=== PATIENT | male | born 1970 | race Caucasian/White ===

== ENCOUNTER 2018-10-22 17:10 | Outpatient (CLI) | payer OTHER ==
--- NOTE | 2018-10-23 17:22 | MRI Report ---
Reason: HEADACHE,UNSPECIFIED NYSTAGMUS Procedure Date: 10/22/2018 Accession Number: [id number] / [id number] Procedure: MRI - Brain W/O CPT Code: FULL RESULT: EXAM: MRI BRAIN WITHOUT CONTRAST EXAM DATE: 10/22/2018 06:07 PM. CLINICAL HISTORY: Headache, unspecified nystagmus. COMPARISON: None. TECHNIQUE: Multiplanar, multisequence T1-weighted and fluid-sensitive MR sequences of the brain were performed. Sequences optimized for routine evaluation. Other: None. IV Contrast: None. FINDINGS: The diffusion-weighted images are normal. There is no evidence of acute or subacute cerebral infarction. 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 The basilar artery measures up to 7.5 mm distally. This produces compression and uplifting of the left side of the hypothalamus (4, 801). This is somewhat unusual in a patient of this young age. Recommend correlation for any history of chronic hypertension. The T2 axial FLAIR images are normal. Cerebral volume and ventricular size are normal. The craniocervical junction is normal. The pituitary and sella are normal. The bilateral parotid spaces exhibit normal signal intensity. There is contact and posterior displacement of the nerve exit zone of the right 7th and 8th cranial nerves by the tortuous basilar artery (32, 901). Recommend correlation for any right 7th or 8th cranial nerve findings. There also appears to be extension to the nerve exit zone. There is also contact and posterior displacement of the right glossopharyngeal nerve (14, 901). There also appears to likely to be contact of the vagus nerve. Recommend correlation with clinical symptoms. There is a normal appearance of the course of the left 7th and 8th cranial nerves. There is a normal appearance of the course of the left glossopharyngeal nerve. There is a normal appearance of the course of the bilateral trigeminal nerves. There are normal bony caps demonstrated over the bilateral superior semicircular canals. There is no evidence of dehiscence. The T2* sequence is normal. There is no evidence of subacute or chronic hemorrhage. IMPRESSION: 1. There is no evidence of acute or subacute cerebral infarction. 2. 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 The basilar artery measures up to 7.5 mm distally. This produces compression and uplifting of the left side of the hypothalamus. However there is no T2 hyperintensity to suggest underlying edema. There is also contact and posterior displacement of the right 7th and 8th cranial nerves, right 9th and 10th cranial nerves. Recommend correlation with clinical symptoms. This is somewhat unusual for patient of this age. This can be secondary to chronic hypertension. Recommend correlation. Otherwise, it may represent an unusual anatomical variant. 3. There is no evidence of brain mass.
== END 2018-10-22 17:11 | disposition home or self-care (01) ==
LOC: DI 17:10
PROVIDERS: ATTEND Family Medicine
DX: I77.89 Other specified disorders of arteries and arterioles (principal); R51 Headache; H55.00 Unspecified nystagmus
CPT/HCPCS: 70551

== ENCOUNTER 2019-08-09 21:20 | Emergency (ER) | payer OTHER ==
[2019-08-09 21:30] VITALS: BP 146/87
--- NOTE | 2019-08-09 21:49 | ED Physician Documentation ---
History of Present Illness - Stated complaint Stated Complaint: POSS OVERDOSE,FEVER - Chief complaint Chief Complaint: General - History obtained from History obtained from: Patient (the patient is a 49 y/o m who p/w a cc of possible tylenol toxicity. the patient has been treating himself with theraflul and nyquil over the last 48 hours for a fever and cough, his called poison control and they told him to come to the er. the patient denies any complaints other than flu like symptoms of fevers and cough, he vomited once today. he denies any lethargy, jaundice like symptoms, headaches, diarrhea, dark urine, chapo colored stools, yellowing of the skin. denies any seizures. reports he is up to date on all of his immunizations, does take metformin for non insulin dependent diabetes.) Review of Systems Constitutional: reports: Fever, Chills, Myalgias Eyes: reports: Reviewed and negative Ears: reports: Reviewed and negative Nose: reports: Reviewed and negative Throat: reports: Reviewed and negative Cardiac: reports: Reviewed and negative Respiratory: reports: Reviewed and negative GI: reports: Reviewed and negative : reports: Reviewed and negative Skin: reports: Reviewed and negative Musculoskeletal: reports: Reviewed and negative Neurologic: reports: Reviewed and negative Psychiatric: reports: Reviewed and negative Endocrine: reports: Reviewed and negative Immunocompromised: reports: Reviewed and negative PD PAST MEDICAL HISTORY - Present Medications Home Medications: Ambulatory Orders Medication Instructions Recorded Confirmed Benzonatate [Tessalon Perle] 100 mg PO BID PRN #7 capsule 08/09/19 - Allergies Allergies/Adverse Reactions: Allergies Allergy/AdvReac Type Severity Reaction Status Date / Time No Known Drug Allergies Allergy Verified 08/09/19 21:25 PD ED PE NORMAL - Vitals Vital signs reviewed: Yes - General General: Alert and oriented X 3, No acute distress, Well developed/nourished - HEENT HEENT: Atraumatic, PERRL, EOMI, Ears normal, Moist mucous membranes, Dentition benign, Other (no scleral icterus) - Neck Neck: Supple, no meningeal sign, No JVD, No bruit - Cardiac Cardiac: RRR, No murmur, Strong equal pulses - Respiratory Respiratory: No respiratory distress, Clear bilaterally, Other - Abdomen Abdomen: Normal bowel sounds, Soft, Non tender, Non distended, No organomegaly - Male Male : Deferred - Rectal Rectal: Deferred - Back Back: No CVA TTP, No spinal TTP - Derm Derm: Normal color, Warm and dry, No rash - Extremities Extremities: No deformity, No tenderness to palpate, Normal ROM s pain, No edema, No calf tenderness / cord - Neuro Neuro: Alert and oriented X 3, credit analysis manager 2-12 intact, No motor deficit, No sensory deficit, Normal speech - Psych Psych: Normal mood, Normal affect Results - Vitals Vitals: Vital Signs - 24 hr 08/09/19 21:25 Temperature 37.8 C H Heart Rate 92 Respiratory 14 Rate Blood Pressure 146/87 H O2 Saturation 94 Oxygen O2 Source Room air - EKG (time done) 22:10 Rate: Other (no stemi) - Labs Labs: Laboratory Tests 08/09/19 08/09/19 08/09/19 22:25 22:25 22:25 WBC 9.0 RBC 4.73 Hgb 15.5 Hct 42.9 MCV 90.7 MCH 32.8 H MCHC 36.1 H RDW 12.8 Plt Count 184 MPV 9.8 Neut # (Auto) 6.7 H Lymph # (Auto) 1.1 L [place] # (Auto) 1.0 Eos # (Auto) 0.2 Baso # (Auto) 0.1 Absolute Nucleated RBC 0.00 Nucleated RBC % 0.0 PT INR APTT Sodium 134 L Potassium 2.6 L Chloride 98 L Carbon Dioxide 25 Anion Gap 11.0 BUN 18 Creatinine 0.9 Estimated GFR (MDRD) 89 Glucose 170 H Lactic Acid Calcium 8.6 Total Bilirubin 1.0 Direct Bilirubin 0.1 AST 25 ALT 33 Alkaline Phosphatase 56 Ammonia 24.3 Total Creatine Kinase 146 Troponin I High Sens Total Protein 7.0 Albumin 4.1 Globulin 2.9 Lipase 25 Salicylates < 6.0 Urine Opiates Screen Ur Oxycodone Screen Urine Methadone Screen Ur Propoxyphene Screen Acetaminophen < 10 L Ur Barbiturates Screen Ur Tricyclics Screen Ur Phencyclidine Scrn Ur Amphetamine Screen U Methamphetamines Scrn U Benzodiazepines Scrn Urine Cocaine Screen U Cannabinoids Screen Ethyl Alcohol < 5.0 08/09/19 08/09/19 08/09/19 22:25 22:25 22:25 WBC RBC Hgb Hct MCV MCH MCHC RDW Plt Count MPV Neut # (Auto) Lymph # (Auto) [place] # (Auto) Eos # (Auto) Baso # (Auto) Absolute Nucleated RBC Nucleated RBC % PT 12.9 H INR 1.1 APTT 29.4 Sodium Potassium Chloride Carbon Dioxide Anion Gap BUN Creatinine Estimated GFR (MDRD) Glucose Lactic Acid 1.2 Calcium Total Bilirubin Direct Bilirubin AST ALT Alkaline Phosphatase Ammonia Total Creatine Kinase Troponin I High Sens 9.3 Total Protein Albumin Globulin Lipase Salicylates Urine Opiates Screen Ur Oxycodone Screen Urine Methadone Screen Ur Propoxyphene Screen Acetaminophen Ur Barbiturates Screen Ur Tricyclics Screen Ur Phencyclidine Scrn Ur Amphetamine Screen U Methamphetamines Scrn U Benzodiazepines Scrn Urine Cocaine Screen U Cannabinoids Screen Ethyl Alcohol 08/09/19 22:25 WBC RBC Hgb Hct MCV MCH MCHC RDW Plt Count MPV Neut # (Auto) Lymph # (Auto) [place] # (Auto) Eos # (Auto) Baso # (Auto) Absolute Nucleated RBC Nucleated RBC % PT INR APTT Sodium Potassium Chloride Carbon Dioxide Anion Gap BUN Creatinine Estimated GFR (MDRD) Glucose Lactic Acid Calcium Total Bilirubin Direct Bilirubin AST ALT Alkaline Phosphatase Ammonia Total Creatine Kinase Troponin I High Sens Total Protein Albumin Globulin Lipase Salicylates Urine Opiates Screen NEGATIVE Ur Oxycodone Screen NEGATIVE Urine Methadone Screen NEGATIVE Ur Propoxyphene Screen NEGATIVE Acetaminophen Ur Barbiturates Screen NEGATIVE Ur Tricyclics Screen NEGATIVE Ur Phencyclidine Scrn NEGATIVE Ur Amphetamine Screen NEGATIVE U Methamphetamines Scrn NEGATIVE U Benzodiazepines Scrn POSITIVE H Urine Cocaine Screen NEGATIVE U Cannabinoids Screen NEGATIVE Ethyl Alcohol PD MEDICAL DECISION MAKING - ED course Complexity details: reviewed results (23:14), re-evaluated patient (23:14), considered differential (patient taking nyquil and theraflu for last 48 hours, unknown of total amount, denies si/hi, denies jaundice like symptoms. will check acetaminophen level and coag, coingestants, basic labs and reval. patient asymptomatic currently), d/w patient (23:14), d/w family (23:14) Departure - Departure Disposition: 01 Home, Self Care Clinical Impression: Viral syndrome Condition: Stable Instructions: ED Viral Syndrome Follow-Up: TIKI LOTT MD [Primary Care Provider] - 08/11/19 Prescriptions: Benzonatate [Tessalon Perle] 100 mg PO BID PRN #7 capsule PRN Reason: Cough
[2019-08-09 22:32] LABS: BASOPHILS # (AUTO) 0.1 10^3/uL (0.0-0.1); BASOPHILS % (AUTO) 0.7 %; EOSINOPHILS # (AUTO) 0.2 10^3/uL (0.0-0.7); EOSINOPHILS % (AUTO) 2.3 %; HGB - HEMOGLOBIN 15.5 g/dL (14.0-18.0); LYMPHOCYTES # (AUTO) 1.1 10^3/uL (1.5-3.5); LYMPHOCYTES % (AUTO) 11.7 %; MEAN CORPUSCULAR HEMOGLOBIN 32.8 pg (27.0-31.0); MEAN CORPUSCULAR HGB CONC 36.1 g/dL (32.0-36.0); MEAN CORPUSCULAR VOLUME 90.7 fL (80.0-94.0); MEAN PLATELET VOLUME 9.8 fL (7.4-11.4); MONOCYTES % (AUTO) 10.9 %; NEUTROPHILS # (AUTO) 6.7 10^3/uL (1.5-6.6); NEUTROPHILS % (AUTO) 74.1 %; PLT - PLATELET COUNT 184 10^3/uL (130-450); RED BLOOD COUNT 4.73 10^6/uL (4.70-6.10); RED CELL DISTRIBUTION WIDTH 12.8 % (12.0-15.0)
--- NOTE | 2019-08-09 22:34 | XRAY Report ---
Reason: cough Procedure Date: 08/09/2019 Accession Number: [id number] / [id number] Procedure: XR - Chest 2 View X-Ray CPT Code: 92826 Final Report FULL RESULT: EXAM: CHEST RADIOGRAPHY EXAM DATE: 08/09/2019 10:19 PM. CLINICAL HISTORY: Cough. Cough for 3 days. COMPARISON: None. TECHNIQUE: 2 views. FINDINGS: Lungs/Pleura: No focal opacities evident. No pleural effusion. No pneumothorax. Normal volumes. Mediastinum: Heart and mediastinal contours are unremarkable. Other: Old healed right clavicular fracture. IMPRESSION: No acute cardiopulmonary abnormality demonstrated. RADIA
[2019-08-09 22:38] LABS: INR 1.1 (0.8-1.2); PT - PROTHROMBIN TIME 12.9 secs (9.9-12.6)
[2019-08-09 22:40] LABS: MUDS CUTOFF CONCENTRATIONS CUTOFF CONC BELOW:
[2019-08-09 22:45] LABS: PARTIAL THROMBOPLASTIN TIME 29.4 secs (24.9-33.3)
[2019-08-09 22:48] LABS: ACETAMINOPHEN < 10 ug/mL (10-30); ALBUMIN 4.1 g/dL (3.2-5.5); ALKALINE PHOSPHATASE 56 IU/L (42-121); ALT ALANINE AMINOTRANSFERASE 33 IU/L (10-60); AST ASPARTATE AMINOTRANSFERASE 25 IU/L (10-42); BILIRUBIN,DIRECT 0.1 mg/dL (0.1-0.5); BUN - BLOOD UREA NITROGEN 18 mg/dL (6-20); CALCIUM 8.6 mg/dL (8.5-10.3); CARBON DIOXIDE - CO2 25 mmol/L (21-32); CHLORIDE 98 mmol/L (101-111); CK- CREATINE KINASE 146 IU/L (22-269); CREATININE 0.9 mg/dL (0.6-1.2); GFR - MDRD 89 (>89); GLUCOSE 170 mg/dL (70-100); LIPASE 25 U/L (22-51); SALICYLATE < 6.0 mg/dL; SODIUM 134 mmol/L (135-145)
[2019-08-09 22:52] LABS: AMPHETAMINE SCREEN,URINE NEGATIVE (NEGATIVE); BENZODIAZEPINES SCREEN, URINE POSITIVE (NEGATIVE); COCAINE SCREEN URINE NEGATIVE (NEGATIVE); METHADONE SCREEN, URINE NEGATIVE (NEGATIVE); METHAMPHETAMINES SCREEN, URINE NEGATIVE (NEGATIVE); OPIATE SCREEN, URINE NEGATIVE (NEGATIVE); OXYCODONE SCREEN, URINE NEGATIVE (NEGATIVE); PROPOXYPHENE SCREEN, URINE NEGATIVE (NEGATIVE); TRICYCLIC ANTIDEPRESSANT,URINE NEGATIVE (NEGATIVE)
[2019-08-09] MEDS ORDERED: BENZONATATE 100 MG CAPSULE PO STA (23:14)
== END 2019-08-09 23:22 | disposition home or self-care (01) ==
LOC: ED 21:20
DX: B34.9 Viral infection, unspecified (principal)
CPT/HCPCS: 36415; 71046; 80048; 80076; 80320; 80329; 82140; 82550; 83605; 83690; 84484; 85025; 85610; 85730; 93005; 99284; A9270; 80306; 80307

== ENCOUNTER 2020-12-20 22:28 | Emergency (ER) | payer OTHER ==
[2020-12-20 22:34] VITALS: BP 156/84
--- NOTE | 2020-12-20 22:50 | ED Physician Documentation ---
PD HPI UPPER EXT INJURY - Stated complaint Stated Complaint: FINGER SWELLING - Chief complaint Chief Complaint: Ext Problem - History obtained from History obtained from: Patient - History of Present Illness Location: Right, Finger (end of little finger with redness and swelling over several hours. Had a small sore at nailbed corner. No local discoloration nor drainage. No injury.) Type of injury: No: Fall, Twist Timing - onset: Today Timing - details: Abrupt onset (not aware of injury per se. Started with redness and swelling initially near nailbed corner and he noted a small soreness in corner. It has gotten swollen quickly over few hours.) Improved by: Rest Worsened by: Moving, Palpating Associated symptoms: Swelling, Discolored (redness of end of finger, much of it on palmar pad.). No: Weakness, Numbness Similar symptoms before: Has not had sx before Recently seen: Not recently seen Review of Systems Constitutional: denies: Fever, Chills GI: denies: Nausea, Vomiting Neurologic: denies: Focal weakness, Numbness PD PAST MEDICAL HISTORY - Past Medical History Cardiovascular: None Respiratory: None - Present Medications Home Medications: Ambulatory Orders Medication Instructions Recorded Confirmed Benzonatate [Tessalon Perle] 100 mg PO BID PRN #7 capsule 08/09/19 Doxycycline Monohydrate 150 mg PO BID 6 Days #12 12/20/20 - Allergies Allergies/Adverse Reactions: Allergies Allergy/AdvReac Type Severity Reaction Status Date / Time No Known Drug Allergies Allergy Verified 12/20/20 22:31 PD ED PE NORMAL - Vitals Vital signs reviewed: Yes - General General: Alert and oriented X 3, No acute distress, Well developed/nourished - Derm Derm: Normal color, Warm and dry - Extremities Extremities: Other (right little finger tip with redness and swelling distal phalanx without fluctuance. there is tenderness without discoloration radial side corner of nail. No FB. ) - Neuro Neuro: No motor deficit, No sensory deficit Results - Vitals Vitals: Vital Signs - 24 hr 12/20/20 12/20/20 22:31 23:22 Temperature 36.7 C 36.7 C Heart Rate 64 64 Respiratory 16 16 Rate Blood Pressure 156/84 H 156/84 H O2 Saturation 98 98 Oxygen O2 Source Room air PD MEDICAL DECISION MAKING - ED course Complexity details: considered differential (apparent paranychia without local purulence. redness and swelling in palmar pad but not firm/fluctuant to suggest abscess/phelon. ), d/w patient Departure - Departure Disposition: 01 Home, Self Care Clinical Impression: Paronychia Cellulitis, finger Qualifiers: Laterality: right Qualified Code(s): L03.011 - Cellulitis of right finger Condition: Stable Record reviewed to determine appropriate education?: Yes Instructions: ED Fingernail Infec Follow-Up: KUNAL CHADWICK DO [Primary Care Provider] - Prescriptions: Doxycycline Monohydrate 150 mg PO BID 6 Days #12 Comments: Warm moist soaks or towels to the finger every few hours or so to promote blood flow and help fight off infection. Anti-inflammatory such as ibuprofen or naproxen 2-3 times a day can help with pain and some swelling. Doxycycline antibiotic twice daily for the next 4 to 6 days for the infection. I would expect improvement over the next 2 to 3 days and resolved by 3 to 4 days. Recheck if not better in that timeframe and return if worsening. Discharge Date/Time: 12/20/20 23:25
[2020-12-20] MEDS ORDERED: DOXYCYCLINE 100 MG TABLET PO STA (23:06)
[2020-12-20] MEDS ORDERED: IBUPROFEN 600 MG TABLET PO STA (23:06)
== END 2020-12-20 23:25 | disposition home or self-care (01) ==
LOC: ED 22:28
DX: L03.011 Cellulitis of right finger (principal)
CPT/HCPCS: 99282; 99283; A9270